=== PATIENT | female | born 1970 | race Caucasian/White ===

== ENCOUNTER 2017-05-17 08:11 | Day surgery (SDC) | payer BC ==
[~2017-05-17] VITALS: Ht 160 cm; Wt 54.5 kg
[~2017-05-17 08:11] MED LIST: ONDA1TAB16 PO; SYNT25TA
[2017-05-17 08:30] VITALS: BP 113/78; PULSE 81; RESP 20; TEMP 98; O2SAT 99
[2017-05-17] MEDS ORDERED: ALPR0.5T3 PO ×2 (08:37)
[2017-05-17] MEDS ORDERED: CYAN1KIT2 IM (08:37)
[2017-05-17] MEDS ORDERED: MULT-65 PO ×2 (08:37)
[2017-05-17] MEDS ORDERED: LEVO.125 PO ×2 (08:37)
[2017-05-17] MEDS ORDERED: ZOLP10TA3 PO ×2 (08:37)
[2017-05-17] MEDS ORDERED: VITA250T3 PO (08:37)
[2017-05-17] MEDS ORDERED: CHOL5000 PO ×2 (08:37)
[2017-05-17] MEDS ORDERED: ALEV220T14 PO (08:37)
[2017-05-17 09:43] LABS: BICARBONATE 26.6 MEQ/L (21.0-32.0); CALCIUM 8.9 MG/DL (8.5-10.1); CREATININE 0.75 MG/DL (0.50-1.00)
[2017-05-17 10:19] LABS: AUTOMATED NEUTROPHIL # 3.6 TH/MM3 (1.8-7.7); BASOPHIL # 0.1 TH/MM3 (0-0.2); BASOPHIL % 1.1 % (0.0-2.0); EOSINOPHIL # 0.1 TH/MM3 (0-0.4); EOSINOPHIL % 1.8 % (0.0-4.0); HEMATOCRIT 39.5 % (35.0-46.0); HEMOGLOBIN 13.4 GM/DL (11.6-15.3); LYMPH % 29.3 % (9.0-44.0); LYMPHOCYTE # 1.8 TH/MM3 (1.0-4.8); MEAN CORPUSCULAR HEMOGLOBIN 32.9 PG (27.0-34.0); MEAN CORPUSCULAR HGB CONC 33.9 % (32.0-36.0); MEAN PLATELET VOLUME 9.7 FL (7.0-11.0); MONO % 10.1 % (0.0-8.0); MONOCYTE # 0.6 TH/MM3 (0-0.9); NEUT % 57.7 % (16.0-70.0); PLATELET COUNT 291 TH/MM3 (150-450); RED BLOOD COUNT 4.07 MIL/MM3 (4.00-5.30); RED CELL DISTRIBUTION WIDTH 12.5 % (11.6-17.2); WHITE BLOOD COUNT 6.2 TH/MM3 (4.0-11.0)
[2017-05-17 11:25] VITALS: BP 104/72; PULSE 67; RESP 18; TEMP 98.8; O2SAT 99
--- NOTE | 2017-05-17 11:26 | PD.RAD ---
Post Procedure Progress Note Pre Procedure Diagnosis: (1) Numbness Post Procedure Diagnosis: (1) Numbness Procedure Date: May 17, 2017 Supervising Radiologist: Esdras Bates Proceduralist/Assist: Sharyn Harper, RT(R)(CV), RT Refugio(R) Anesthesia: Local Plan of Activity Patient to Unit: [facility] Patient Condition: Good See PACS Report for procedural detail/treatment Esdras Bates MD May 17, 2017 11:26
--- NOTE | 2017-05-17 11:53 | RADRPT ---
EXAM DATE/TIME: 05/17/2017 10:49 [facility] COMPARISON: No previous studies available for comparison. INDICATIONS : numbness in hands and feet . MEDICAL HISTORY : 1. hypothroidism SURGICAL HISTORY : 1. Back surgery 2. bladder surgery 3. hysterectomy ENCOUNTER: Initial ACUITY: 2 months PAIN SCORE: 0/10 LUMBAR PUNCTURE TIME: 1105 hours FLUORO TIME: 0.1 minutes IMAGE SERIES: 0 ACCESS LEVEL: L3-4 FLUID: 18 cc of clear CSF was collected and sent to the laboratory for analysis. PROCEDURE : 1. Fluoroscopic guided lumbar puncture. The risks, benefits and alternatives to the procedure were explained and verbal and written consent w as obtained. The site was prepped in sterile fashion. Full sterile technique was used, including ca p, mask, sterile gloves and gown and a large sterile sheet. Hand hygiene and 2% chlorhexidine and/or betadine/alcohol prep was utilized per protocol for cutaneous antisepsis. The skin and subcutaneous tissues were infiltrated with local anesthetic solution. With fluoroscopic guidance the lumbar thecal sac was punctured at the level above. The fluid describ ed above was removed without difficulty. The patient tolerated the procedure well and there were no complications. CONCLUSION: Uncomplicated fluoroscopically guided lumbar puncture. Esdras Bates MD on May 17, 2017 at 11:51 Board Certified Radiologist. This report was verified electronically.
[2017-05-17 12:22] LABS: TOTAL PROTEIN,CSF 43.9 MG/DL (15.0-45.0)
[2017-05-17 13:14] LABS: RBC TUBE #1 0 /MM3; SUPERNATE COLOR TUBE #1 CLEAR (CLEAR); WBC TUBE #1 15 /MM3 (0-10)
[2017-05-17 13:15] LABS: CSF LYMPHOCYTES 100 %; CSF NEUTROPHILS 0 %; RBC TUBE #4 2 /MM3; WBC TUBE #4 2 /MM3 (0-10)
[2017-05-17 14:07] VITALS: BP 99/65; PULSE 87; RESP 20; O2SAT 98
[2017-05-18 09:49] LABS: HSV 1,PCR Negative (Negative)
[2017-05-18 22:52] LABS: HTLV I/II ANTIBODY Negative (Negative)
[2017-05-20 11:55] LABS: CSF CRYPTOCOCCUS AG CONF ND (NOT DETECTD)
[2017-05-20 17:53] LABS: CSF CRYPTOCOCCUS ANTIGEN NOT DETECTED (NEGATIVE); VDRL CSF NON-REACTIVE (NON-REACTVE)
== END 2017-05-17 14:25 | disposition home or self-care (01) ==
LOC: HROP 08:11 → HRIP 08:13 → HROP 14:25
PROVIDERS: ATTEND Specialist
DX: G37.3 Acute transverse myelitis in demyelinating disease of central nervous system (principal); R20.0 Anesthesia of skin; E03.9 Hypothyroidism, unspecified
CPT/HCPCS: 62270; 77003; 80048; 82040; 82042; 82784; 82945; 83873; 83916; 84157; 85025; 86403; 86592; 86790; 87015; 87070; 87102; 87116; 87205; 87206; 87529; 87801; 89051

== ENCOUNTER 2017-05-18 15:25 | Inpatient (IN) | payer BC ==
[~2017-05-18 15:25] MED LIST changes: +ALEV220T14 PO; +ALPR0.5T3 PO; +CHOL5000 PO; +CYAN1KIT2 IM; +LEVO.125 PO; +MULT-65 PO; +VITA250T3 PO; +ZOLP10TA3 PO
[2017-05-18] MEDS ORDERED: LACTULOSE SYRUP 20 GM/30 ML CUP PO PRN (16:00)
[2017-05-18] MEDS ORDERED: NALOXONE HCL 0.4 MG/ML AMP IV PUSH PRN (16:00)
[2017-05-18] MEDS ORDERED: BISACODYL 10 MG SUPP RECTAL PRN (16:00)
[2017-05-18] MEDS ORDERED: ONDANSETRON HCL 4 MG/2 ML VIAL IVP PRN (16:00)
[2017-05-18] MEDS ORDERED: ACETAMINOPHEN 325 MG TAB PO PRN ×2 (16:00→18:30)
[2017-05-18] MEDS ORDERED: MAGNESIUM HYDROXIDE SUSP 30 ML CUP PO PRN (16:00)
[2017-05-18] MEDS ORDERED: SODIUM CHLORIDE 0.9% FLUSH 10 ML FLUSH IV FLUSH PRN (16:00)
[2017-05-18] MEDS ORDERED: SENNOSIDES 8.6 MG TAB PO PRN (16:00)
[2017-05-18] MEDS: SODIUM CHLOR 0.9% 1000 ML INJ 1,000 ML IV SCH (16:00)
[2017-05-18 16:53] VITALS: BP 123/77; PULSE 82; RESP 18; TEMP 97.8; O2SAT 96
--- NOTE | 2017-05-18 17:56 | RADRPT ---
EXAM DATE/TIME: 05/18/2017 16:55 [facility] COMPARISON: No previous studies available for comparison. INDICATIONS : Cephalgia after lumbar puncture. CONTRAST: 10 cc Omniscan (gadodiamide) IV MEDICAL HISTORY : Hypothyroidism. SURGICAL HISTORY : Hysterectomy. Fusion, lumbar. ENCOUNTER: Subsequent ACUITY: 3 day PAIN SCORE: 4/10 LOCATION: head. TECHNIQUE: Multiplanar, multisequence MRI of the brain was performed both prior to and following the administrat ion of paramagnetic contrast. FINDINGS: CEREBRUM: The ventricles are normal for age. No evidence of midline shift, mass lesion, hemorrhage or acute in farction. No extraaxial fluid collections are seen. The pituitary gland and suprasellar cistern are normal in configuration. WHITE MATTER: No significant signal abnormalities are seen in the white matter. POSTERIOR FOSSA: The cerebellum and brainstem are intact. The 4th ventricle is midline. The cerebellopontine angle is unremarkable. The cerebellar tonsils are normal in position. DIFFUSION IMAGING: No focal areas of restricted diffusion are seen. No evidence of acute infarction. EXTRACRANIAL: The visualized portions of the orbits and paranasal sinuses are unremarkable. POST-CONTRAST: No abnormal areas of parenchymal or dural enhancement. No evidence of blood-brain barrier breakdown. CONCLUSION: 1. No evidence of acute intracranial pathology. No masses are identified. Darren Stern MD on May 18, 2017 at 17:54 Board Certified Radiologist. This report was verified electronically.
--- NOTE | 2017-05-18 18:09 | RADRPT ---
EXAM DATE/TIME: 05/18/2017 16:55 [facility] COMPARISON: No previous studies available for comparison. INDICATIONS : Pain. CONTRAST: 10 cc Omniscan (gadodiamide) IV MEDICAL HISTORY : Hypothyroidism. SURGICAL HISTORY : Hysterectomy. Discectomy, lumbar. ENCOUNTER: Subsequent ACUITY: 3 day PAIN SCORE: 3/10 LOCATION: neck. TECHNIQUE: Multiplanar, multisequence MRI examination of the cervical spine was performed. FINDINGS: VERTEBRAE: Normal vertebral body height. Homogeneous marrow signal. ALIGNMENT: No evidence of subluxation. CORD: Normal configuration and signal. POST FOSSA: The cerebellar tonsils are normal in position. POST-CONTRAST: No abnormal areas of enhancement are seen. C2-C3: The thecal sac has a normal configuration. There is no evidence of disc herniation or spinal canal stenosis. The neural foramina are patent bilaterally. C3-C4: The thecal sac has a normal configuration. There is no evidence of disc herniation or spinal canal s tenosis. The neural foramina are patent bilaterally. C4-C5: The thecal sac has a normal configuration. There is no evidence of disc herniation or spinal canal s tenosis. The neural foramina are patent bilaterally. C5-C6: Minimal uncinate ridging is present. There is no significant stenosis. C6-C7: Minimal right-sided uncinate ridging is present. There is no significant stenosis. C7-T1: The thecal sac has a normal configuration. There is no evidence of disc herniation or spinal canal s tenosis. The neural foramina are patent bilaterally. CONCLUSION: Mild degenerative changes. Benji Xie MD FACR on May 18, 2017 at 18:06 Board Certified Radiologist. This report was verified electronically.
[2017-05-18] MEDS ORDERED: GADODIAMIDE PF 287 MG/ML 10 ML VIAL (for RAD MRI) IVCONTRAST ONE (18:30)
[2017-05-18] MEDS: ALPRAZolam 0.5 MG TAB PO PRN (18:31)
[2017-05-18 18:56] LABS: AST (GOT) 22 U/L (15-37); BICARBONATE 22.6 MEQ/L (21.0-32.0); BLOOD UREA NITROGEN 7 MG/DL (7-18); CALCIUM 8.2 MG/DL (8.5-10.1); CHLORIDE 108 MEQ/L (98-107); CREATININE 0.69 MG/DL (0.50-1.00); GLOMERULAR FILTRATION RATE 91 ML/MIN (>89); GLUCOSE,RANDOM 140 MG/DL (74-106); SODIUM (NA) 140 MEQ/L (136-145)
[2017-05-18 18:57] LABS: ALT (GPT) 39 U/L (10-53)
[2017-05-18 19:06] LABS: ALKALINE PHOSPHATASE 71 U/L (45-117); FREE T3 2.71 PG/ML (2.18-3.98); TOTAL BILIRUBIN ADULT 0.2 MG/DL (0.2-1.0); TOTAL PROTEIN 7.9 GM/DL (6.4-8.2)
[2017-05-18 20:00] VITALS: BP 105/61; PULSE 84; RESP 18; TEMP 97.7; O2SAT 98
[2017-05-18] MEDS: DOCUSATE SODIUM 50 MG/SENNA 8.6 MG TAB PO SCH (21:00)
[2017-05-18] MEDS: ZOLPIDEM TARTRATE 10 MG TAB PO PRN (22:23)
[2017-05-18] MEDS: SODIUM CHLORIDE 0.9% FLUSH 10 ML FLUSH IV FLUSH SCH (22:23)
[2017-05-19] VITALS (7 sets, daily range): BP systolic 94–115; BP diastolic 55–68; PULSE 82–98; RESP 18; TEMP 97.6–98.7; O2SAT 95–100
[2017-05-19] MEDS: SODIUM CHLOR 0.9% 1000 ML INJ 1,000 ML IV SCH ×3 (03:54→22:00)
[2017-05-19] MEDS: LEVOTHYROXINE SODIUM 125 MCG TAB PO SCH (04:55)
--- NOTE | 2017-05-19 06:00 | MB ---
cc: JANNA MTZ DATE OF CONSULTATION 05/18/2017 HISTORY OF PRESENT ILLNESS A 47-year-old woman whom I had seen the office several weeks ago. She began having, about a month before that, some pains that ran down her arms and numbness in her hands and feet, especially if she put her head forward, had a Lhermitte's type sign. MRI of the brain and thoracic spinal cord was negative. MRI of the cervical spine was normal except for the post-enhancing images where she had what appeared to be some enhancement in the lower cervical cord. She had a follow-up MRI of her thoracic spine after that and did not show that area in the cervical cord so there is some possibility that could have been a movement artifact, although there was in a lot of movement on that study in general. Nevertheless, she had an LP done yesterday and then had a post-LP headache and came in today for IV steroids and then correction through the infusion she got up to go the toilet, urinated and then developed a pain in her neck that has continued since. She has not run a fever in here. She had an EMG and NCV in my office and some blood work, all of which have been negative. CURRENT MEDICATIONS 1. Multivitamins. 2. Thyroid medicine. PHYSICAL EXAMINATION VITAL SIGNS: On exam afebrile, 82, 18, 123/77. NECK: Supple; it moves well. She is particularly nontender in the cervical region, although she says there is pain there, about a 7/10. There is no rigidity of the neck. NEUROLOGICAL EXAMINATION: She had normal strength in upper and lower extremities. There is no ankle clonus. DTRs are trace. Light touch is intact. There is no nystagmus. Visual william are full. Extraocular movements intact, without nystagmus. Face is symmetric. Speech is fluent. She is not aphasic. She can move her head around and lift her head up off the pillow. LABORATORY DATA Her CBC was normal yesterday. HSV, DNA, PCR negative from yesterday. LP yesterday Tube #1 had 15 white cells, 100% lymphocytes. Tube #2 had only 3 white cells, 100% lymphocytes. Glucose and protein were normal on the CSF. Basic metabolic profile yesterday was normal as were LFTs. IMAGING STUDIES She had an MRI of her brain just done now with and without contrast and was read as normal. MRI of the cervical spine also done showed some mild DJD only with and without contrast. REVIEW OF THE FILMS I do not see any significant sagging of the cerebellum. There is a small midline disk which just comes up and abuts the spinal cord at C5-6 but does not impinge on it at all. There is no enhancement in the spinal cord here. IMPRESSION AND PLAN Some neck pain after the LP. Initially I thought that this was a recurrence of her post-LP headache, but not so sure at this time as it has not gone away over the course today. I am going to try her on a muscle relaxer and some Tylenol. MD DOMINGO Calvert/SSB /6:18 PM /5:40 AM
--- NOTE | 2017-05-19 08:14 | HHI.PR ---
Objective Vital Signs Date Time Temp Pulse Resp B/P (MAP) Pulse Ox O2 Delivery O2 Flow Rate FiO2 05/19/17 08:00 98.1 92 18 105/56 (72) 96 05/19/17 04:00 98.7 82 18 104/55 (71) 96 05/19/17 01:06 84 05/19/17 00:00 97.6 98 18 94/56 (69) 95 05/18/17 20:00 97.7 84 18 105/61 (76) 98 05/18/17 16:53 97.8 82 18 123/77 (92) 96 I/O 05/18/17 05/18/17 05/18/17 05/19/17 05/19/17 05/19/17 07:00 15:00 23:00 07:00 15:00 23:00 Intake Total 73 ml 728 ml Balance 73 ml 728 ml Intake IV Total 73 ml 728 ml # Voids 3 Result Diagram: 05/18/17 5237 Objective Remarks alert nad Assessment and Plan Assessment and Plan imp esr 6 afeb still neck pain now says is positional as is churchill will need blood patch today anaesthesia consulted i consulted id just to make sure no infxt from LP i think unlikely however Darren Carvajal MD May 19, 2017 08:14
--- NOTE | 2017-05-19 08:14 | HHI.PR ---
Objective Vital Signs Date Time Temp Pulse Resp B/P (MAP) Pulse Ox O2 Delivery O2 Flow Rate FiO2 05/19/17 08:00 98.1 92 18 105/56 (72) 96 05/19/17 04:00 98.7 82 18 104/55 (71) 96 05/19/17 01:06 84 05/19/17 00:00 97.6 98 18 94/56 (69) 95 05/18/17 20:00 97.7 84 18 105/61 (76) 98 05/18/17 16:53 97.8 82 18 123/77 (92) 96 I/O 05/18/17 05/18/17 05/18/17 05/19/17 05/19/17 05/19/17 07:00 15:00 23:00 07:00 15:00 23:00 Intake Total 73 ml 728 ml Balance 73 ml 728 ml Intake IV Total 73 ml 728 ml # Voids 3 Result Diagram: 05/18/17 8733 Objective Remarks alert nad Assessment and Plan Assessment and Plan imp esr 6 afeb still neck pain now says is positional as is churchill will need blood patch today anaesthesia consulted i consulted id just to make sure no infxt from LP i think unlikely however Darren Carvajal MD May 19, 2017 08:14
--- NOTE | 2017-05-19 08:14 | HHI.PR ---
Objective Vital Signs Date Time Temp Pulse Resp B/P (MAP) Pulse Ox O2 Delivery O2 Flow Rate FiO2 05/19/17 08:00 98.1 92 18 105/56 (72) 96 05/19/17 04:00 98.7 82 18 104/55 (71) 96 05/19/17 01:06 84 05/19/17 00:00 97.6 98 18 94/56 (69) 95 05/18/17 20:00 97.7 84 18 105/61 (76) 98 05/18/17 16:53 97.8 82 18 123/77 (92) 96 I/O 05/18/17 05/18/17 05/18/17 05/19/17 05/19/17 05/19/17 07:00 15:00 23:00 07:00 15:00 23:00 Intake Total 73 ml 728 ml Balance 73 ml 728 ml Intake IV Total 73 ml 728 ml # Voids 3 Result Diagram: 05/18/17 8203 Objective Remarks alert nad Assessment and Plan Assessment and Plan imp esr 6 afeb still neck pain now says is positional as is churchill will need blood patch today anaesthesia consulted i consulted id just to make sure no infxt from LP i think unlikely however Darren Carvajal MD May 19, 2017 08:14
[2017-05-19] MEDS: MULTIVITAMIN TAB PO SCH (08:33)
[2017-05-19] MEDS: CHOLECALCIFEROL (VIT D3) 5000 UNIT CAP PO SCH (08:33)
[2017-05-19] MEDS: SODIUM CHLORIDE 0.9% FLUSH 10 ML FLUSH IV FLUSH SCH ×2 (08:33→20:42)
[2017-05-19] MEDS: DOCUSATE SODIUM 50 MG/SENNA 8.6 MG TAB PO SCH ×2 (08:33→20:41)
[2017-05-19] MEDS ORDERED: NON-FORMULARY DRUG (Multiple Vitamin (Multi-Vitamin Daily) 1 TAB) PO SCH (09:00)
[2017-05-19 10:04] LABS: AUTOMATED NEUTROPHIL # 14.4 TH/MM3 (1.8-7.7); BASOPHIL % 0.1 % (0.0-2.0); HEMATOCRIT 34.8 % (35.0-46.0); HEMOGLOBIN 11.6 GM/DL (11.6-15.3); LYMPH % 11.6 % (9.0-44.0); LYMPHOCYTE # 2.1 TH/MM3 (1.0-4.8); MEAN CELL VOLUME 97.2 FL (80.0-100.0); MEAN CORPUSCULAR HEMOGLOBIN 32.4 PG (27.0-34.0); MEAN CORPUSCULAR HGB CONC 33.3 % (32.0-36.0); MEAN PLATELET VOLUME 9.5 FL (7.0-11.0); MONOCYTE # 1.4 TH/MM3 (0-0.9); NEUT % 80.3 % (16.0-70.0); PLATELET COUNT 265 TH/MM3 (150-450); RED BLOOD COUNT 3.58 MIL/MM3 (4.00-5.30); RED CELL DISTRIBUTION WIDTH 12.6 % (11.6-17.2); WHITE BLOOD COUNT 17.9 TH/MM3 (4.0-11.0)
[2017-05-19] MEDS: ALPRAZolam 0.5 MG TAB PO PRN (11:17)
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
--- NOTE | 2017-05-19 13:21 | EKG ---
Date Performed: 05/18/2017 Time Performed: 16:19:30 PTAGE: 47 years EKG: Sinus rhythm WITH MARKED SINUS ARRHYTHMIA BORDERLINE ECG NO PREVIOUS TRACING DOCTOR: Migel Brar Interpretating Date/Time 05/19/2017 13:16:00
--- NOTE | 2017-05-19 14:32 | MB ---
cc: WALKER SERRANO MD DATE OF CONSULTATION: 05/19/[address] Carvajal. REASON FOR CONSULTATION Questionable meningitis. The patient had lumbar puncture and steroids and then developed neck pain. HISTORY OF PRESENT ILLNESS This is a 47-year-old white female who was admitted to the hospital for workup of some neurological problems. The patient was followed by the neurologist and she was describing pain that ran down her arms and numbness in her hands and feet which had been going on for about a month. The patient was admitted for further workup and she underwent lumbar puncture for evaluation. The lumbar puncture revealed 15 white cells. 100% of the cells were lymphocytes. The glucose and protein were normal. The HSV-1 DNA testing was negative. HTLV-1 and 2 antibody was negative. The spinal culture has no growth in 48 hours. The gram stain revealed no organisms and no white cells from the lumbar puncture performed on 05/17. The patient was complaining of headache and she had pains in the back of the neck radiating down to the back and to her arms whenever she tried to sit up from a flat position in bed. She has undergone a blood patch today and when I entered the room she was sitting upright in bed with her legs crossed in front of her and she tells me that she feels a lot better since the patch was done. The MR of the brain showed no acute intracranial abnormality and the cervical spine MRI showed mild degenerative changes. The patient denies and vomiting, fever, chills, or abdominal pain. The white count today is 17.9 and platelet count is 265. PAST MEDICAL HISTORY 1. Hypothyroidism. 2. Hysterectomy. 3. Back surgery. 4. Bladder sling procedure in 2007. ALLERGIES SULFA AND MORPHINE. MEDICATIONS 1. Synthroid. 2. Theragran. 3. Vitamin D3. 4. Simona-Colace. 5. Ambien. 6. Xanax p.r.n. SOCIAL HISTORY The patient smokes a few cigarettes a day. She drinks alcohol occasionally. Denies illicit drugs. FAMILY HISTORY Noncontributory. REVIEW OF SYSTEMS Pertinent as mentioned above in history of present illness. PHYSICAL EXAMINATION GENERAL: This is a slender female who is in no acute distress. She is awake and alert and oriented. VITAL SIGNS: Include temperature 98.2, BP 112/65, respirations 18, heart rate 76. HEENT: Extraocular movements grossly intact, pupils reactive to light. No icterus. Oropharynx moist mucosa without lesions. NECK: Supple. No adenopathy. LUNGS: Clear to auscultation. HEART: Regular, S1 and S2 without murmurs, rubs or gallops. ABDOMEN: Bowel sounds present, soft, no tenderness. RECTAL: Not performed. EXTREMITIES: No clubbing, cyanosis or edema. SKIN: No rash. NEURO: Awake and alert and oriented. No gross findings. PSYCHIATRIC: The patient is calm and cooperative and pleasant. LABORATORY DATA WBC 17.9, 80% neutrophils, hemoglobin 11.6, sedimentation rate 6, creatinine 0.69, sodium 140. IMPRESSION Headache post lumbar puncture. The patient without any evidence suggesting meningitis. The patient is feeling better after the blood patch procedure. I have nothing further to add at this point. Please reconsult if further input is needed. Walker Serrano MD FD/LIDIA /1:28 PM /2:00 PM
[2017-05-19] MEDS: traMADol HCL 50 MG TAB PO PRN (15:03)
[2017-05-19] MEDS: ZOLPIDEM TARTRATE 10 MG TAB PO PRN (20:41)
[2017-05-19] MEDS: FAMOTIDINE 20 MG TAB PO SCH (20:41)
[2017-05-20] VITALS: BP 102/59; PULSE 88; RESP 18; TEMP 98.6; O2SAT 95
[2017-05-20 01:11] VITALS: PULSE 71
[2017-05-20 04:00] VITALS: BP 106/57; PULSE 71; RESP 18; TEMP 97; O2SAT 97
[2017-05-20] MEDS: LEVOTHYROXINE SODIUM 125 MCG TAB PO SCH (05:36)
[2017-05-20] MEDS: traMADol HCL 50 MG TAB PO PRN (05:36)
--- NOTE | 2017-05-20 07:35 | HHI.PR ---
Objective Vital Signs Date Time Temp Pulse Resp B/P (MAP) Pulse Ox O2 Delivery O2 Flow Rate FiO2 05/20/17 04:00 97.0 71 18 106/57 (73) 97 05/20/17 01:11 71 05/20/17 00:00 98.6 88 18 102/59 (73) 95 05/19/17 20:00 98.0 87 18 114/55 (74) 98 05/19/17 16:06 98.2 85 18 115/68 (84) 100 05/19/17 12:10 76 18 112/65 (81) 100 Room Air 05/19/17 11:47 98.2 84 18 113/65 (81) 99 05/19/17 11:24 98.5 86 18 114/62 (79) 99 Room Air 05/19/17 08:00 98.1 92 18 105/56 (72) 96 I/O 05/19/17 05/19/17 05/19/17 05/20/17 05/20/17 05/20/17 07:00 15:00 23:00 07:00 15:00 23:00 Intake Total 728 ml Balance 728 ml Intake IV Total 728 ml # Voids 3 Result Diagram: 05/19/17 0910 05/18/17 1759 Objective Remarks alert nad all better neck pain gone Assessment and Plan Assessment and Plan imp esr 6 afeb still neck pain now says is positional as is churchill will need blood patch today anaesthesia consulted i consulted id just to make sure no infxt from LP i think unlikely however 05/20/17 id cleared sx gone after blood patch still with numb feet and hands one gram solumedrol to day then ? tomorrow dose in o/p setting? Darren Carvajal MD May 20, 2017 07:35
[2017-05-20 08:03] LABS: HEMATOCRIT 32.6 % (35.0-46.0); HEMOGLOBIN 10.9 GM/DL (11.6-15.3); MEAN CELL VOLUME 98.2 FL (80.0-100.0); MEAN CORPUSCULAR HEMOGLOBIN 32.8 PG (27.0-34.0); MEAN CORPUSCULAR HGB CONC 33.4 % (32.0-36.0); MEAN PLATELET VOLUME 9.6 FL (7.0-11.0); PLATELET COUNT 223 TH/MM3 (150-450); RED BLOOD COUNT 3.32 MIL/MM3 (4.00-5.30); RED CELL DISTRIBUTION WIDTH 12.7 % (11.6-17.2); WHITE BLOOD COUNT 8.7 TH/MM3 (4.0-11.0)
[2017-05-20] MEDS ORDERED: methylPREDNISolone SO SUCC INJ 1,000 MG in DEXTROSE 5% IN WATER INJ 250 ML IV ONE ×2 (08:15)
[2017-05-20 08:31] LABS: BICARBONATE 24.9 MEQ/L (21.0-32.0); CALCIUM 7.5 MG/DL (8.5-10.1); CREATININE 0.59 MG/DL (0.50-1.00)
--- NOTE | 2017-05-20 08:35 | HHI.PR ---
Subjective Remarks Resting comfortably in bed. No longer has neck pain since blood patch yesterday. Objective Vital Signs Date Time Temp Pulse Resp B/P (MAP) Pulse Ox O2 Delivery O2 Flow Rate FiO2 05/20/17 04:00 97.0 71 18 106/57 (73) 97 05/20/17 01:11 71 05/20/17 00:00 98.6 88 18 102/59 (73) 95 05/19/17 20:00 98.0 87 18 114/55 (74) 98 05/19/17 16:06 98.2 85 18 115/68 (84) 100 05/19/17 12:10 76 18 112/65 (81) 100 Room Air 05/19/17 11:47 98.2 84 18 113/65 (81) 99 05/19/17 11:24 98.5 86 18 114/62 (79) 99 Room Air I/O 05/19/17 05/19/17 05/19/17 05/20/17 05/20/17 05/20/17 07:00 15:00 23:00 07:00 15:00 23:00 Intake Total 728 ml 1000 ml Balance 728 ml 1000 ml Intake IV Total 728 ml 1000 ml # Voids 3 Result Diagram: 05/20/17 0644 05/18/17 1759 Procedures 05/19 blood patch Objective Remarks GENERAL: alert and oriented. SKIN: Warm and dry. HEAD: Normocephalic. EYES: No scleral icterus. No injection or drainage. NECK: Supple, trachea midline. No JVD or lymphadenopathy. CARDIOVASCULAR: Regular rate and rhythm without murmurs, gallops, or rubs. RESPIRATORY: Breath sounds equal bilaterally. No accessory muscle use. GASTROINTESTINAL: Abdomen soft, non-tender, nondistended. MUSCULOSKELETAL: No cyanosis, or edema. BACK: Nontender without obvious deformity. No CVA tenderness. Medications and IVs Current Medications Medications (Trade) Dose Ordered Sig/Tiffany Route Start Time Stop Time Status Last Admin Sodium Chloride 1,000 ml @ 100 mls/hr Q10H IV 05/18/17 16:00 05/19/17 22:00 (NS Flush) 2 ml UNSCH PRN IV FLUSH 05/18/17 16:00 (NS Flush) 2 ml BID IV FLUSH 05/18/17 21:00 05/19/17 20:42 (Zofran Inj) 4 mg Q6H PRN IVP 05/18/17 16:00 (Narcan Inj) 0.4 mg UNSCH PRN IV PUSH 05/18/17 16:00 (Simona-Colace) 1 tab BID PO 05/18/17 21:00 05/19/17 20:41 (Milk Of Magnesia Liq) 30 ml Q12H PRN PO 05/18/17 16:00 (Senokot) 17.2 mg Q12H PRN PO 05/18/17 16:00 (Dulcolax Supp) 10 mg DAILY PRN RECTAL 05/18/17 16:00 (Lactulose Liq) 30 ml DAILY PRN PO 05/18/17 16:00 (Xanax) 0.5 mg Q12HR PRN PO 05/18/17 16:00 05/19/17 11:17 (Vitamin D3) 5,000 units DAILY PO 05/19/17 09:00 05/19/17 08:33 (Synthroid) 125 mcg DAILY@0600 PO 05/19/17 06:00 05/20/17 05:36 (Theragran) 1 tab DAILY PO 05/19/17 09:00 05/19/17 08:33 (Tylenol) 650 mg Q8HR PRN PO 05/18/17 18:30 05/19/17 03:53 (Zanaflex) 4 mg Q8HR PRN PO 05/18/17 18:30 05/19/17 12:31 (Ambien) 10 mg HS PRN PO 05/18/17 20:30 05/19/17 20:41 (Ultram) 50 mg Q6H PRN PO 05/19/17 13:45 05/20/17 05:36 (Pepcid) 20 mg BID PO 05/19/17 21:00 05/19/17 20:41 Methylprednisolone Sodium Succinate 1000 mg/Dextrose 266 ml @ 266 mls/hr ONCE ONCE IV 05/20/17 08:15 05/20/17 09:14 Assessment and Plan Problem List: (1) Insomnia ICD Codes: G47.00 - Insomnia, unspecified (2) Hypothyroid ICD Codes: E03.9 - Hypothyroidism, unspecified (3) Neck pain ICD Codes: M54.2 - Cervicalgia (4) Numbness ICD Codes: R20.0 - Anesthesia of skin Assessment and Plan 05/19/17 Neck pain: Zanaflex and Tylenol PRN. ID consulted for possible meningitis. WBC is elevated at 17.9 but recent IV steroids. Blood patch ordered per neurology. Tramadol added PRN Hypothyroidism: on replacement TSH in AM Anxiety: Xanax PRN. hyperglycemia: random glucose 140 HAIC ordered. Insomnia: Home dose of Ambien resumed GI prophylaxis and SCDs ordered. 05/20/17 Neck pain" Resolved after blood patch yesterday. ID cleared. IVF discontinued. Tolerating fluids well. Numbness: Continues to have numbness in hands and feet. IV solumedrol per neurology Back pain: Chronic. Tramadol PRN Hypocalcemia: replacement added. I and the SERVICE NOW DEVELOPER have both examined this patient and reviewed this note and I agree with these findings and plan of care. Lavonne Alcala. SERVICE [employer] DEVELOPER May 20, 2017 08:35
[2017-05-20 08:36] VITALS: BP 121/77; PULSE 72; RESP 18; TEMP 97.8; O2SAT 99
[2017-05-20] MEDS: DOCUSATE SODIUM 50 MG/SENNA 8.6 MG TAB PO SCH (08:55)
[2017-05-20] MEDS: FAMOTIDINE 20 MG TAB PO SCH (08:55)
[2017-05-20] MEDS: SODIUM CHLORIDE 0.9% FLUSH 10 ML FLUSH IV FLUSH SCH (08:55)
[2017-05-20] MEDS: CHOLECALCIFEROL (VIT D3) 5000 UNIT CAP PO SCH (08:55)
[2017-05-20] MEDS: MULTIVITAMIN TAB PO SCH (08:55)
[2017-05-20] MEDS ORDERED: CALCIUM CARBONATE 500 MG CHEWABLE TAB CHEW SCH (09:00)
[2017-05-20] MEDS: ALPRAZolam 0.5 MG TAB PO PRN (09:02)
[2017-05-20 12:00] VITALS: BP 120/60; PULSE 79; RESP 18; TEMP 97.7; O2SAT 95
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
[2017-05-20 15:42] VITALS: BP 133/75; PULSE 76; RESP 18; TEMP 98.1; O2SAT 98
== END 2017-05-20 16:58 | disposition home or self-care (01) | DRG 103 ==
LOC: OBSVTOIN 15:25 → N05A 15:25
PROVIDERS: ADMIT Family Medicine; ATTEND Family Medicine
PROC: 3E0R3GC Introduction of Other Therapeutic Substance into Spinal Canal, Percutaneous Approach (ICD-10-PCS; principal; 2017-05-19)
DX: G97.1 Other reaction to spinal and lumbar puncture (principal); E83.51 Hypocalcemia; E03.9 Hypothyroidism, unspecified; M54.2 Cervicalgia; F41.9 Anxiety disorder, unspecified; Y84.4 Aspiration of fluid as the cause of abnormal reaction of the patient, or of later complication, without mention of misadventure at the time of the procedure; R20.0 Anesthesia of skin; F17.210 Nicotine dependence, cigarettes, uncomplicated; G47.00 Insomnia, unspecified; R73.9 Hyperglycemia, unspecified
CPT/HCPCS: 62273; 70553; 72156; 80048; 80053; 82948; 83036; 84443; 84481; 85025; 85027; 85652; 93005; 96361; 96365; 96366; A9579; J2930; J7030; J7042; J7050; J7060

== ENCOUNTER 2017-05-21 09:12 | Emergency (ER) | payer BC ==
[~2017-05-21] VITALS: Ht 160 cm; Wt 55.0 kg
[~2017-05-21 09:12] MED LIST changes: -ALEV220T14 PO; -CYAN1KIT2 IM; -ONDA1TAB16 PO; -SYNT25TA; -VITA250T3 PO
[2017-05-21 09:14] VITALS: BP 150/77; PULSE 89; RESP 16; TEMP 98.4; O2SAT 99
[2017-05-21] MEDS ORDERED: methylPREDNISolone SO SUCC INJ 1,000 MG in DEXTROSE 5% IN WATER 100ML INJ 100 ML IV ONE ×2 (10:15)
--- NOTE | 2017-05-21 10:22 | PD ---
HPI Chief Complaint: Medical Clearance Time Seen by Provider: 10:02 Travel History International Travel<30 days: No Contact w/Intl Traveler<30days: No Traveled to known affect area: No History of Present Illness HPI Patient is a 47-year-old female who presents to emergency room for her IV dose of Solu-Medrol. Patient reports that she had a spinal tap on Tuesday by interventional radiology for workup of multiple sclerosis who she is being seen by Dr. Carvajal in the office. Patient reports that she developed a spinal headache after her lumbar puncture. Patient was then admitted to the hospital on Tuesday and was seen by Dr. Carvajal's, IV Solu-Medrol 1 g was given at that time. Patient had persistent headaches on , and subsequently patient received a blood patch. Patient reports that she had complete resolution of symptoms right after her blood patch was placed. Patient was discharged yesterday after she received an IV of Solu-Medrol. Patient was told to return to the emergency room today for her last dose of IV Solu-Medrol 1 g. Patient with no complete at this time, denies any headache or dizziness. Patient reports that she is only here for her last dose of IV steroids. PFSH Past Medical History Arthritis: Yes Autoimmune Disease: No Anxiety: Yes (Mild) Depression: No Heart Rhythm Problems: No Cancer: No Cardiovascular Problems: No High Cholesterol: No Chest Pain: No Congestive Heart Failure: No Diabetes: No Diminished Hearing: No Endocrine: Yes Genitourinary: No Hepatitis: No Hiatal Hernia: No Immune Disorder: No Kidney Stones: Yes Musculoskeletal: Yes Neurologic: Yes Psychiatric: Yes Reproductive: Yes (Tubular ) Respiratory: No Renal Failure: No Thyroid Disease: Yes (Hypothyroidism) ?: Not : 2 Para: 1 Tubal Ligation: Yes Past Surgical History Abdominal Surgery: No AICD: No Cardiac Surgery: No Ear Surgery: No Endocrine Surgery: No Eye Surgery: No Genitourinary Surgery: Yes (Bladder sling 2007 removed 2009) Gynecologic Surgery: Yes (Hysterectomy 2002) Hysterectomy: Yes Joint Replacement: No Neurologic Surgery: No Oral Surgery: No Pacemaker: No Thoracic Surgery: Yes (L5 S1 Laminectomy 2011) Other Surgery: Yes Social History Alcohol Use: Yes (OCCASIONALLY) Tobacco Use: Yes (5 CIGARRETTES DAILY) Substance Use: No Allergies-Medications (Allergen,Severity, Reaction): Coded Allergies: Sulfa (Sulfonamide Antibiotics) (Verified Allergy, Mild, 05/21/17) morphine (Verified Allergy, Mild, 05/21/17) Reported Meds & Prescriptions Reported Meds & Active Scripts Active Reported Zolpidem (Zolpidem Tartrate) 10 Mg Tab 10 Mg PO HS PRN Vitamin D3 (Cholecalciferol) 5,000 Unit Cap 5,000 Units PO DAILY Multi-Vitamin Daily (Multiple Vitamin) 1 Tab Tab 1 Tab PO DAILY Alprazolam 0.5 Mg Tab 0.5 Mg PO Q12HR PRN Synthroid (Levothyroxine Sodium) 125 Mcg Tab 125 Mcg PO DAILY Review of Systems General / Constitutional: No: Fever Eyes: No: Visual changes HENT: No: Headaches Cardiovascular: No: Chest Pain or Discomfort Respiratory: No: Shortness of Breath Gastrointestinal: No: Abdominal Pain Genitourinary: No: Dysuria Musculoskeletal: No: Pain Skin: No Rash Neurologic: No: Weakness Psychiatric: No: Depression Endocrine: No: Polydipsia Hematologic/Lymphatic: No: Easy Bruising Physical Exam Narrative GENERAL: NAD SKIN: Focused skin assessment warm/dry. HEAD: Atraumatic. Normocephalic. EYES: Pupils equal and round. No scleral icterus. No injection or drainage. ENT: No nasal bleeding or discharge. Mucous membranes pink and moist. NECK: Trachea midline. No JVD. CARDIOVASCULAR: Regular rate and rhythm. No murmur appreciated. RESPIRATORY: No accessory muscle use. Clear to auscultation. Breath sounds equal bilaterally. GASTROINTESTINAL: Abdomen soft, non-tender, nondistended. Hepatic and splenic margins not palpable. MUSCULOSKELETAL: No obvious deformities. No clubbing. No cyanosis. No edema. NEUROLOGICAL: Awake and alert. No obvious cranial nerve deficits. Motor grossly within normal limits. Normal speech. CN 2-12 grossly intact with no neurological deficits PSYCHIATRIC: Appropriate mood and affect; insight and judgment normal. Data Data Last Documented VS Vital Signs Date Time Temp Pulse Resp B/P (MAP) Pulse Ox O2 Delivery O2 Flow Rate FiO2 05/21/17 09:14 98.4 89 16 150/77 (101) 99 Orders Orders Methylprednisolone So Succ Inj (Solumedr (05/21/17 10:15) MDM Medical Decision Making Medical Screen Exam Complete: Yes Emergency Medical Condition: Yes Medical Record Reviewed: Yes Interpretation(s) Vital Signs Date Time Temp Pulse Resp B/P (MAP) Pulse Ox O2 Delivery O2 Flow Rate FiO2 05/21/17 09:14 98.4 89 16 150/77 (101) 99 Differential Diagnosis Status post spinal headache Narrative Course 47-year-old female who is here for her last dose of IV Solu-Medrol. Reviewed his records were reviewed, she has been receiving 1 g of IV Solu-Medrol as per Dr. Carvajal for treatment of a spinal headache. Patient with no symptoms at this time, no neurovascular deficits. IV steroid ordered, she will follow up with Dr. Carvajal in office and will return to ER as needed Diagnosis Primary Impression: Cephalgia Qualified Codes: R51 - Headache Patient Instructions: General Instructions Additional Instructions: Please follow-up with Dr. Carvajal in the office as scheduled Return to the emergency room as needed. Disposition: 01 DISCHARGE HOME Condition: Stable Denise Garcia DO May 21, 2017 10:22
== END 2017-05-21 11:31 | disposition home or self-care (01) ==
LOC: NEPD 09:12
DX: G97.1 Other reaction to spinal and lumbar puncture (principal); R51 Headache; Y84.4 Aspiration of fluid as the cause of abnormal reaction of the patient, or of later complication, without mention of misadventure at the time of the procedure
CPT/HCPCS: 96374; 99284; J2930